=== PATIENT | female | born 1955 | race Caucasian/White ===

== ENCOUNTER 2018-06-02 11:03 | Inpatient (IN) | payer OTHER ==
[~2018-06-02] VITALS: Ht 167.6 cm; Wt 66.7 kg
[2018-06-02] MEDS ORDERED: MAG HYDROX/AL HYDROX/SIMETH 30 ML UDC PO PRN (12:30)
[2018-06-02] MEDS ORDERED: MAGNESIUM HYDROXIDE 30 ML UDC PO PRN (12:30)
[2018-06-02] MEDS: QUETIAPINE FUMARATE 100 MG TABLET PO SCH ×2 (13:30→17:00)
[2018-06-02] MEDS ORDERED: QUET300T2 PO (14:10)
[2018-06-02] MEDS ORDERED: CEPH-570 PO (14:10)
[2018-06-02] MEDS ORDERED: ASPI-1152 PO (14:10)
[2018-06-02] MEDS ORDERED: CARV25TA2 PO (14:10)
[2018-06-02] MEDS ORDERED: HYDR-4384 PO (14:10)
[2018-06-02] MEDS ORDERED: INSU100V7 SQ (14:10)
[2018-06-02] MEDS ORDERED: DIVA500T4 PO (14:10)
[2018-06-02] MEDS ORDERED: QUET300T5 PO (14:10)
[2018-06-02] MEDS ORDERED: ATOR80TA PO (14:10)
[2018-06-02 14:45] VITALS: BP 117/59
[2018-06-02 16:00] VITALS: BP 140/60
[2018-06-02] MEDS ORDERED: DEXTROSE 50%-WATER 50 ML DISP.SYRIN IV PRN (16:30)
[2018-06-02] MEDS: DIVALPROEX SODIUM 125 MG CAP.SPRINK PO SCH (17:00)
[2018-06-02] MEDS: BLOOD SUGAR DIAGNOSTIC 1 EACH STRIP IN SCH ×2 (17:07→21:23)
[2018-06-02] MEDS: INSULIN REGULAR, HUMAN 100 UNIT/ML 3 ML VIAL SQ PRN ×2 (17:08→21:35)
[2018-06-02] MEDS ORDERED: hydrALAZINE HCL 10 MG TABLET PO ONE (17:30)
[2018-06-02] MEDS: CEPHALEXIN MONOHYDRATE 500 MG CAPSULE PO SCH (17:58)
[2018-06-02] MEDS ORDERED: HYDROCODONE/APAP 5/325MG 1 EACH TABLET PO PRN (18:00)
[2018-06-02 21:00] VITALS: BP 133/65
[2018-06-02] MEDS: CARVEDILOL 12.5 MG TABLET PO SCH (21:25)
[2018-06-02] MEDS: ATORVASTATIN 40 MG TABLET PO SCH (21:26)
[2018-06-02] MEDS: INSULIN GLARGINE, 100 UNIT/ML CARTRIDGE SQ SCH (21:34)
[2018-06-03] MEDS: CEPHALEXIN MONOHYDRATE 500 MG CAPSULE PO SCH ×4 (00:51→17:05)
[2018-06-03 07:24] LABS: ALBUMIN 3.3 g/dL (3.4-5.0); BILIRUBIN,TOTAL 0.4 mg/dL (0.2-1.0); CALCIUM, SERUM 9.5 mg/dL (8.5-10.1); CREATININE 0.8 mg/dL (0.6-1.3); POTASSIUM 4.4 mmol/L (3.5-5.1); TOTAL PROTEIN, SERUM 7.2 g/dL (6.4-8.2)
[2018-06-03] MEDS: BLOOD SUGAR DIAGNOSTIC 1 EACH STRIP IN SCH ×4 (07:47→21:24)
[2018-06-03] MEDS: INSULIN REGULAR, HUMAN 100 UNIT/ML 3 ML VIAL SQ PRN ×4 (07:50→21:31)
[2018-06-03 08:00] VITALS: BP 169/80
[2018-06-03] MEDS: CARVEDILOL 12.5 MG TABLET PO SCH ×2 (08:35→20:14)
[2018-06-03] MEDS: ASPIRIN EC 81 MG TABLET.DR PO SCH (08:37)
[2018-06-03] MEDS: QUETIAPINE FUMARATE 100 MG TABLET PO SCH ×3 (08:39→17:00)
[2018-06-03] MEDS: DIVALPROEX SODIUM 125 MG CAP.SPRINK PO SCH ×3 (08:39→17:00)
[2018-06-03 10:15] VITALS: BP 154/73
[2018-06-03 16:00] VITALS: BP 156/90
[2018-06-03 20:37] VITALS: BP 168/78
[2018-06-03 20:50] VITALS: BP 138/67
[2018-06-03] MEDS: ATORVASTATIN 40 MG TABLET PO SCH (21:16)
[2018-06-03] MEDS: TEMAZEPAM 7.5 MG CAPSULE PO PRN (21:24)
[2018-06-03] MEDS: INSULIN GLARGINE, 100 UNIT/ML CARTRIDGE SQ SCH (21:28)
[2018-06-03] MEDS: ACETAMINOPHEN 325 MG TABLET PO PRN (21:55)
[2018-06-04] MEDS: CEPHALEXIN MONOHYDRATE 500 MG CAPSULE PO SCH ×5 (00:33→23:36)
[2018-06-04] MEDS: hydrALAZINE HCL 10 MG TABLET PO PRN ×3 (07:30→23:40)
[2018-06-04 08:00] VITALS: BP 193/94
[2018-06-04] MEDS: BLOOD SUGAR DIAGNOSTIC 1 EACH STRIP IN SCH ×4 (08:25→21:27)
[2018-06-04] MEDS: ASPIRIN EC 81 MG TABLET.DR PO SCH (08:26)
[2018-06-04] MEDS: CARVEDILOL 12.5 MG TABLET PO SCH ×2 (08:27→20:25)
[2018-06-04] MEDS: INSULIN REGULAR, HUMAN 100 UNIT/ML 3 ML VIAL SQ PRN ×4 (08:30→22:19)
[2018-06-04] MEDS: DIVALPROEX SODIUM 125 MG CAP.SPRINK PO SCH ×3 (08:34→17:00)
[2018-06-04] MEDS: QUETIAPINE FUMARATE 100 MG TABLET PO SCH ×3 (08:34→17:00)
[2018-06-04 16:00] VITALS: BP 170/73
[2018-06-04 18:21] VITALS: BP 160/79
[2018-06-04] MEDS: ACETAMINOPHEN 325 MG TABLET PO PRN (18:24)
[2018-06-04] MEDS: LORAZEPAM 0.5 MG TABLET PO PRN (19:45)
[2018-06-04 20:00] VITALS: BP 161/78
[2018-06-04] MEDS: ATORVASTATIN 40 MG TABLET PO SCH (21:27)
[2018-06-04] MEDS: INSULIN GLARGINE, 100 UNIT/ML CARTRIDGE SQ SCH (22:16)
[2018-06-04] MEDS: TEMAZEPAM 7.5 MG CAPSULE PO PRN (22:20)
[2018-06-05] MEDS: CEPHALEXIN MONOHYDRATE 500 MG CAPSULE PO SCH ×4 (06:18→23:01)
[2018-06-05 08:00] VITALS: BP 172/82
[2018-06-05] MEDS: BLOOD SUGAR DIAGNOSTIC 1 EACH STRIP IN SCH ×4 (08:34→21:19)
[2018-06-05] MEDS: INSULIN REGULAR, HUMAN 100 UNIT/ML 3 ML VIAL SQ PRN ×4 (08:34→21:27)
[2018-06-05] MEDS: ASPIRIN EC 81 MG TABLET.DR PO SCH (08:58)
[2018-06-05] MEDS: CARVEDILOL 12.5 MG TABLET PO SCH ×2 (08:59→21:21)
[2018-06-05] MEDS: hydrALAZINE HCL 10 MG TABLET PO PRN ×3 (08:59→22:44)
[2018-06-05] MEDS: DIVALPROEX SODIUM 125 MG CAP.SPRINK PO SCH ×3 (09:00→17:00)
[2018-06-05] MEDS: QUETIAPINE FUMARATE 100 MG TABLET PO SCH ×3 (09:00→17:00)
[2018-06-05 16:00] VITALS: BP 181/74
[2018-06-05] MEDS: INSULIN ASPART/LISPRO 100 UNIT/ML CARTRIDGE SQ SCH (17:34)
[2018-06-05 20:00] VITALS: BP 168/91
[2018-06-05] MEDS: ATORVASTATIN 40 MG TABLET PO SCH (21:20)
[2018-06-05] MEDS: INSULIN GLARGINE, 100 UNIT/ML CARTRIDGE SQ SCH (21:31)
[2018-06-05] MEDS: ACETAMINOPHEN 325 MG TABLET PO PRN (22:54)
[2018-06-06] MEDS: LORAZEPAM 0.5 MG TABLET PO PRN ×2 (02:48→09:07)
[2018-06-06 02:50] VITALS: BP 156/76
[2018-06-06] MEDS: CEPHALEXIN MONOHYDRATE 500 MG CAPSULE PO SCH ×4 (06:16→23:01)
[2018-06-06 08:00] VITALS: BP 120/67
[2018-06-06] MEDS: CARVEDILOL 12.5 MG TABLET PO SCH ×2 (08:44→19:36)
[2018-06-06] MEDS: QUETIAPINE FUMARATE 100 MG TABLET PO SCH ×3 (08:44→17:00)
[2018-06-06] MEDS: BLOOD SUGAR DIAGNOSTIC 1 EACH STRIP IN SCH ×4 (08:44→20:02)
[2018-06-06] MEDS: DIVALPROEX SODIUM 125 MG CAP.SPRINK PO SCH ×3 (08:44→17:00)
[2018-06-06] MEDS: ASPIRIN EC 81 MG TABLET.DR PO SCH (08:44)
[2018-06-06] MEDS: INSULIN ASPART/LISPRO 100 UNIT/ML CARTRIDGE SQ SCH ×2 (08:47→17:53)
[2018-06-06] MEDS: INSULIN REGULAR, HUMAN 100 UNIT/ML 3 ML VIAL SQ PRN ×4 (08:48→20:10)
[2018-06-06 16:00] VITALS: BP 147/63
[2018-06-06] MEDS: ACETAMINOPHEN 325 MG TABLET PO PRN (19:35)
[2018-06-06 20:00] VITALS: BP 145/67
[2018-06-06 20:32] VITALS: BP 176/70
[2018-06-06] MEDS: ATORVASTATIN 40 MG TABLET PO SCH (21:02)
[2018-06-06] MEDS: INSULIN GLARGINE, 100 UNIT/ML CARTRIDGE SQ SCH (21:03)
[2018-06-07] MEDS: CEPHALEXIN MONOHYDRATE 500 MG CAPSULE PO SCH ×4 (05:01→23:39)
[2018-06-07] MEDS: hydrALAZINE HCL 10 MG TABLET PO PRN (05:01)
[2018-06-07 08:00] VITALS: BP 189/95
[2018-06-07] MEDS: QUETIAPINE FUMARATE 100 MG TABLET PO SCH ×3 (09:00→17:00)
[2018-06-07] MEDS: DIVALPROEX SODIUM 125 MG CAP.SPRINK PO SCH ×3 (09:00→17:00)
[2018-06-07] MEDS: BLOOD SUGAR DIAGNOSTIC 1 EACH STRIP IN SCH ×4 (09:08→22:11)
[2018-06-07] MEDS: LORAZEPAM 0.5 MG TABLET PO PRN (09:09)
[2018-06-07] MEDS: CARVEDILOL 12.5 MG TABLET PO SCH ×2 (09:10→20:13)
[2018-06-07] MEDS: ASPIRIN EC 81 MG TABLET.DR PO SCH (09:11)
[2018-06-07] MEDS: INSULIN ASPART/LISPRO 100 UNIT/ML CARTRIDGE SQ SCH ×2 (09:13→18:15)
[2018-06-07] MEDS: INSULIN REGULAR, HUMAN 100 UNIT/ML 3 ML VIAL SQ PRN ×4 (09:14→22:15)
[2018-06-07 10:00] VITALS: BP 148/70
[2018-06-07 16:00] VITALS: BP 144/90
[2018-06-07 20:00] VITALS: BP 182/92
[2018-06-07 20:03] VITALS: BP 182/92
[2018-06-07] MEDS: ACETAMINOPHEN 325 MG TABLET PO PRN (20:12)
[2018-06-07] MEDS: INSULIN GLARGINE, 100 UNIT/ML CARTRIDGE SQ SCH (22:14)
[2018-06-07] MEDS: ATORVASTATIN 40 MG TABLET PO SCH (22:14)
[2018-06-07 22:30] VITALS: BP 148/81
[2018-06-07] MEDS: TEMAZEPAM 7.5 MG CAPSULE PO PRN (22:38)
[2018-06-08] MEDS: CEPHALEXIN MONOHYDRATE 500 MG CAPSULE PO SCH ×3 (06:00→18:14)
[2018-06-08] MEDS: BLOOD SUGAR DIAGNOSTIC 1 EACH STRIP IN SCH ×4 (07:30→22:00)
[2018-06-08 08:00] VITALS: BP 180/97
[2018-06-08] MEDS: ASPIRIN EC 81 MG TABLET.DR PO SCH (08:52)
[2018-06-08] MEDS: QUETIAPINE FUMARATE 100 MG TABLET PO SCH ×3 (08:53→18:14)
[2018-06-08] MEDS: CARVEDILOL 12.5 MG TABLET PO SCH ×2 (08:53→21:00)
[2018-06-08] MEDS: DIVALPROEX SODIUM 125 MG CAP.SPRINK PO SCH ×3 (08:53→17:00)
[2018-06-08] MEDS: INSULIN REGULAR, HUMAN 100 UNIT/ML 3 ML VIAL SQ PRN ×4 (08:57→17:53)
[2018-06-08] MEDS: INSULIN ASPART/LISPRO 100 UNIT/ML CARTRIDGE SQ SCH ×2 (09:03→17:52)
[2018-06-08] MEDS: AMLODIPINE BESYLATE 5 MG TABLET PO SCH (11:37)
[2018-06-08] MEDS ORDERED: HALOPERIDOL LACTATE INJ 5 MG/ML VIAL IM PRN (15:00)
[2018-06-08 16:00] VITALS: BP 106/69
[2018-06-08] MEDS ORDERED: HALOPERIDOL 5 MG TABLET PO SCH (17:00)
[2018-06-08] MEDS: risperiDONE 1 MG TABLET PO SCH (17:00)
[2018-06-08 20:09] VITALS: BP 147/77
[2018-06-08 20:21] VITALS: BP 147/77
[2018-06-08] MEDS: INSULIN GLARGINE, 100 UNIT/ML CARTRIDGE SQ SCH (22:00)
[2018-06-08] MEDS ORDERED: QUETIAPINE FUMARATE 100 MG TABLET PO SCH (22:00)
[2018-06-08] MEDS: ATORVASTATIN 40 MG TABLET PO SCH (22:00)
[2018-06-09] MEDS: CEPHALEXIN MONOHYDRATE 500 MG CAPSULE PO SCH ×3 (06:36→11:37)
[2018-06-09] MEDS: BLOOD SUGAR DIAGNOSTIC 1 EACH STRIP IN SCH ×4 (07:28→21:17)
[2018-06-09] MEDS: INSULIN REGULAR, HUMAN 100 UNIT/ML 3 ML VIAL SQ PRN ×4 (07:30→21:26)
[2018-06-09 08:00] VITALS: BP 141/83
[2018-06-09] MEDS: AMLODIPINE BESYLATE 5 MG TABLET PO SCH (08:29)
[2018-06-09] MEDS: ASPIRIN EC 81 MG TABLET.DR PO SCH (08:30)
[2018-06-09] MEDS: CARVEDILOL 12.5 MG TABLET PO SCH ×2 (08:30→21:17)
[2018-06-09] MEDS: risperiDONE 1 MG TABLET PO SCH ×2 (08:30→16:55)
[2018-06-09] MEDS: QUETIAPINE FUMARATE 100 MG TABLET PO SCH (08:33)
[2018-06-09] MEDS: DIVALPROEX SODIUM 125 MG CAP.SPRINK PO SCH (08:33)
[2018-06-09] MEDS: INSULIN ASPART/LISPRO 100 UNIT/ML CARTRIDGE SQ SCH ×2 (09:25→18:19)
[2018-06-09] MEDS ORDERED: HALOPERIDOL LACTATE INJ 5 MG/ML VIAL IM PRN (12:00)
[2018-06-09 16:00] VITALS: BP 146/87
[2018-06-09 20:03] VITALS: BP 144/77
[2018-06-09 20:12] VITALS: BP 131/68
[2018-06-09] MEDS: ATORVASTATIN 40 MG TABLET PO SCH (21:16)
[2018-06-09] MEDS: INSULIN GLARGINE, 100 UNIT/ML CARTRIDGE SQ SCH (21:25)
[2018-06-09] MEDS: ACETAMINOPHEN 325 MG TABLET PO PRN (21:30)
[2018-06-10 08:00] VITALS: BP 160/71
[2018-06-10] MEDS: BLOOD SUGAR DIAGNOSTIC 1 EACH STRIP IN SCH ×4 (08:01→21:22)
[2018-06-10] MEDS: INSULIN REGULAR, HUMAN 100 UNIT/ML 3 ML VIAL SQ PRN ×4 (08:56→21:30)
[2018-06-10] MEDS: ASPIRIN EC 81 MG TABLET.DR PO SCH (08:58)
[2018-06-10] MEDS: INSULIN ASPART/LISPRO 100 UNIT/ML CARTRIDGE SQ SCH ×2 (08:58→17:43)
[2018-06-10] MEDS: risperiDONE 1 MG TABLET PO SCH ×2 (08:58→16:47)
[2018-06-10] MEDS: CARVEDILOL 12.5 MG TABLET PO SCH ×2 (09:10→21:23)
[2018-06-10] MEDS: AMLODIPINE BESYLATE 5 MG TABLET PO SCH (09:10)
[2018-06-10 16:00] VITALS: BP 108/75
[2018-06-10 19:46] VITALS: BP 125/59
[2018-06-10] MEDS: ATORVASTATIN 40 MG TABLET PO SCH (21:22)
[2018-06-10] MEDS: ACETAMINOPHEN 325 MG TABLET PO PRN (21:23)
[2018-06-10] MEDS: INSULIN GLARGINE, 100 UNIT/ML CARTRIDGE SQ SCH (21:28)
[2018-06-11 08:00] VITALS: BP 150/86
[2018-06-11] MEDS: BLOOD SUGAR DIAGNOSTIC 1 EACH STRIP IN SCH ×4 (08:32→21:16)
[2018-06-11] MEDS: INSULIN REGULAR, HUMAN 100 UNIT/ML 3 ML VIAL SQ PRN ×4 (08:46→21:18)
[2018-06-11] MEDS: risperiDONE 1 MG TABLET PO SCH ×2 (08:55→16:50)
[2018-06-11] MEDS: ASPIRIN EC 81 MG TABLET.DR PO SCH (08:55)
[2018-06-11] MEDS: AMLODIPINE BESYLATE 5 MG TABLET PO SCH ×2 (08:55→09:07)
[2018-06-11] MEDS: CARVEDILOL 12.5 MG TABLET PO SCH ×3 (08:55→21:16)
[2018-06-11] MEDS: INSULIN ASPART/LISPRO 100 UNIT/ML CARTRIDGE SQ SCH ×2 (09:19→18:12)
[2018-06-11] MEDS: ACETAMINOPHEN 325 MG TABLET PO PRN (09:34)
[2018-06-11] MEDS ORDERED: risperiDONE 1 MG TABLET PO SCH (13:00)
[2018-06-11] MEDS ORDERED: INVEGA 156 MG IM ONE (14:00)
[2018-06-11 16:00] VITALS: BP 135/59
[2018-06-11 19:47] VITALS: BP 163/75
[2018-06-11 20:00] VITALS: BP 163/75
[2018-06-11] MEDS: ATORVASTATIN 40 MG TABLET PO SCH (21:16)
[2018-06-11] MEDS: INSULIN GLARGINE, 100 UNIT/ML CARTRIDGE SQ SCH (21:19)
[2018-06-12] MEDS: TEMAZEPAM 7.5 MG CAPSULE PO PRN ×2 (01:23→21:26)
[2018-06-12] MEDS: BLOOD SUGAR DIAGNOSTIC 1 EACH STRIP IN SCH ×4 (07:29→21:19)
[2018-06-12] MEDS: INSULIN REGULAR, HUMAN 100 UNIT/ML 3 ML VIAL SQ PRN ×4 (07:37→21:18)
[2018-06-12 08:00] VITALS: BP 159/99
[2018-06-12] MEDS: risperiDONE 1 MG TABLET PO SCH ×2 (08:14→17:03)
[2018-06-12] MEDS: CARVEDILOL 12.5 MG TABLET PO SCH ×2 (08:14→20:24)
[2018-06-12] MEDS: AMLODIPINE BESYLATE 5 MG TABLET PO SCH (08:14)
[2018-06-12] MEDS: ASPIRIN EC 81 MG TABLET.DR PO SCH (08:14)
[2018-06-12] MEDS: INSULIN ASPART/LISPRO 100 UNIT/ML CARTRIDGE SQ SCH ×2 (08:19→17:38)
[2018-06-12 16:00] VITALS: BP 124/66
[2018-06-12 20:00] VITALS: BP 141/72
[2018-06-12] MEDS: ATORVASTATIN 40 MG TABLET PO SCH (21:14)
[2018-06-12] MEDS: INSULIN GLARGINE, 100 UNIT/ML CARTRIDGE SQ SCH (21:17)
[2018-06-13] MEDS: BLOOD SUGAR DIAGNOSTIC 1 EACH STRIP IN SCH ×4 (07:55→21:25)
[2018-06-13 08:00] VITALS: BP 150/89
[2018-06-13] MEDS: INSULIN REGULAR, HUMAN 100 UNIT/ML 3 ML VIAL SQ PRN ×4 (08:20→21:26)
[2018-06-13] MEDS: INSULIN ASPART/LISPRO 100 UNIT/ML CARTRIDGE SQ SCH ×2 (08:21→17:37)
[2018-06-13] MEDS: ASPIRIN EC 81 MG TABLET.DR PO SCH (08:22)
[2018-06-13] MEDS: risperiDONE 1 MG TABLET PO SCH ×2 (08:22→16:08)
[2018-06-13] MEDS: AMLODIPINE BESYLATE 5 MG TABLET PO SCH (08:23)
[2018-06-13] MEDS: CARVEDILOL 12.5 MG TABLET PO SCH ×2 (08:23→20:59)
[2018-06-13 16:00] VITALS: BP 152/88
[2018-06-13 20:00] VITALS: BP 161/59
[2018-06-13] MEDS: ATORVASTATIN 40 MG TABLET PO SCH (21:25)
[2018-06-13] MEDS: INSULIN GLARGINE, 100 UNIT/ML CARTRIDGE SQ SCH (21:29)
[2018-06-14 08:00] VITALS: BP 157/75
[2018-06-14] MEDS: BLOOD SUGAR DIAGNOSTIC 1 EACH STRIP IN SCH ×4 (08:02→21:09)
[2018-06-14] MEDS: INSULIN REGULAR, HUMAN 100 UNIT/ML 3 ML VIAL SQ PRN ×4 (08:07→21:16)
[2018-06-14] MEDS: ASPIRIN EC 81 MG TABLET.DR PO SCH (08:08)
[2018-06-14] MEDS: CARVEDILOL 12.5 MG TABLET PO SCH ×2 (08:09→21:09)
[2018-06-14] MEDS: AMLODIPINE BESYLATE 5 MG TABLET PO SCH (08:09)
[2018-06-14] MEDS: risperiDONE 1 MG TABLET PO SCH ×2 (08:10→16:00)
[2018-06-14] MEDS: INSULIN ASPART/LISPRO 100 UNIT/ML CARTRIDGE SQ SCH ×2 (08:16→17:53)
[2018-06-14 16:00] VITALS: BP 149/68
[2018-06-14] MEDS: ACETAMINOPHEN 325 MG TABLET PO PRN (19:12)
[2018-06-14 19:26] VITALS: BP 130/64
[2018-06-14] MEDS: ATORVASTATIN 40 MG TABLET PO SCH (21:09)
[2018-06-14] MEDS: INSULIN GLARGINE, 100 UNIT/ML CARTRIDGE SQ SCH (21:15)
[2018-06-15] MEDS: BLOOD SUGAR DIAGNOSTIC 1 EACH STRIP IN SCH ×4 (07:57→21:07)
[2018-06-15 08:00] VITALS: BP 160/100
[2018-06-15] MEDS: ASPIRIN EC 81 MG TABLET.DR PO SCH (08:07)
[2018-06-15] MEDS: CARVEDILOL 12.5 MG TABLET PO SCH ×2 (08:07→21:07)
[2018-06-15] MEDS: risperiDONE 1 MG TABLET PO SCH ×2 (08:07→16:33)
[2018-06-15] MEDS: AMLODIPINE BESYLATE 5 MG TABLET PO SCH (08:07)
[2018-06-15] MEDS: INSULIN ASPART/LISPRO 100 UNIT/ML CARTRIDGE SQ SCH ×2 (08:12→17:39)
[2018-06-15] MEDS: INSULIN REGULAR, HUMAN 100 UNIT/ML 3 ML VIAL SQ PRN ×2 (12:23→21:12)
[2018-06-15 16:00] VITALS: BP 160/84
[2018-06-15 19:35] VITALS: BP 172/79
[2018-06-15] MEDS: ATORVASTATIN 40 MG TABLET PO SCH (21:08)
[2018-06-15] MEDS: INSULIN GLARGINE, 100 UNIT/ML CARTRIDGE SQ SCH (21:13)
[2018-06-15 23:58] VITALS: BP 131/67
[2018-06-16] MEDS: BLOOD SUGAR DIAGNOSTIC 1 EACH STRIP IN SCH ×4 (07:57→21:10)
[2018-06-16 08:00] VITALS: BP 159/72
[2018-06-16] MEDS: INSULIN ASPART/LISPRO 100 UNIT/ML CARTRIDGE SQ SCH ×2 (08:58→18:07)
[2018-06-16] MEDS ORDERED: INVEGA SUSTENNA 156 MG IM ONE (09:00)
[2018-06-16] MEDS: INSULIN REGULAR, HUMAN 100 UNIT/ML 3 ML VIAL SQ PRN ×4 (09:03→21:15)
[2018-06-16] MEDS: CARVEDILOL 12.5 MG TABLET PO SCH ×2 (09:10→21:09)
[2018-06-16] MEDS: AMLODIPINE BESYLATE 5 MG TABLET PO SCH (09:10)
[2018-06-16] MEDS: ASPIRIN EC 81 MG TABLET.DR PO SCH (09:10)
[2018-06-16] MEDS: BENZTROPINE MESYLATE (1 MG) 1 MG TABLET PO SCH ×2 (15:14→17:16)
[2018-06-16 16:00] VITALS: BP 155/84
[2018-06-16 19:55] VITALS: BP 118/62
[2018-06-16] MEDS: ATORVASTATIN 40 MG TABLET PO SCH (21:09)
[2018-06-16] MEDS: INSULIN GLARGINE, 100 UNIT/ML CARTRIDGE SQ SCH (21:16)
[2018-06-17] MEDS: ACETAMINOPHEN 325 MG TABLET PO PRN (05:07)
[2018-06-17 08:00] VITALS: BP 149/81
[2018-06-17] MEDS: BLOOD SUGAR DIAGNOSTIC 1 EACH STRIP IN SCH (08:29)
[2018-06-17] MEDS: INSULIN REGULAR, HUMAN 100 UNIT/ML 3 ML VIAL SQ PRN (08:30)
[2018-06-17] MEDS: CARVEDILOL 12.5 MG TABLET PO SCH (08:40)
[2018-06-17] MEDS: BENZTROPINE MESYLATE (1 MG) 1 MG TABLET PO SCH (08:40)
[2018-06-17] MEDS: ASPIRIN EC 81 MG TABLET.DR PO SCH (08:40)
[2018-06-17 08:41] VITALS: BP 149/81
[2018-06-17] MEDS: AMLODIPINE BESYLATE 5 MG TABLET PO SCH (08:41)
[2018-06-17] MEDS: INSULIN ASPART/LISPRO 100 UNIT/ML CARTRIDGE SQ SCH (08:45)
== END 2018-06-17 11:00 | disposition home or self-care (01) | DRG 885 ==
LOC: GPS 11:15
PROVIDERS: ADMIT Psychiatry & Neurology Psychosomatic Medicine; ATTEND Psychiatry & Neurology Psychosomatic Medicine
DX: F25.0 Schizoaffective disorder, bipolar type (principal); E11.65 Type 2 diabetes mellitus with hyperglycemia; N39.0 Urinary tract infection, site not specified; G93.40 Encephalopathy, unspecified; E78.5 Hyperlipidemia, unspecified; I10 Essential (primary) hypertension; M19.90 Unspecified osteoarthritis, unspecified site; Z79.4 Long term (current) use of insulin; F29 Unspecified psychosis not due to a substance or known physiological condition; Z73.6 Limitation of activities due to disability; F03.90 Unspecified dementia, unspecified severity, without behavioral disturbance, psychotic disturbance, mood disturbance, and anxiety; B96.89 Other specified bacterial agents as the cause of diseases classified elsewhere; Z59.0 Homelessness
CPT/HCPCS: 36415; 80053-TC; 80061-TC; 82962-TC; 84484-TC; 87081-TC; J1815

== ENCOUNTER 2019-01-16 19:26 | Inpatient (IN) | payer MEDICARE, MEDICAID ==
[~2019-01-16] VITALS: Ht 167.6 cm; Wt 66.7 kg
[~2019-01-16 19:26] MED LIST: ASPI-1152 PO; ATOR80TA PO; CARV25TA2 PO; CEPH-570 PO; HYDR-4384 PO; INSU100V7 SQ
[2019-01-16 20:18] VITALS: BP 149/93
[2019-01-16] MEDS ORDERED: LORAZEPAM 0.5 MG TABLET PO PRN (20:30)
[2019-01-16] MEDS ORDERED: MAG HYDROX/AL HYDROX/SIMETH 30 ML UDC PO PRN (20:30)
[2019-01-16] MEDS ORDERED: TEMAZEPAM 7.5 MG CAPSULE PO PRN (20:30)
[2019-01-16] MEDS ORDERED: MAGNESIUM HYDROXIDE 30 ML UDC PO PRN (20:30)
[2019-01-16] MEDS: ACETAMINOPHEN 325 MG TABLET PO PRN (20:57)
[2019-01-16] MEDS ORDERED: BLOOD SUGAR DIAGNOSTIC 1 EACH STRIP IN ONE (21:00)
[2019-01-16] MEDS ORDERED: LURA80TA PO (21:08)
[2019-01-16] MEDS ORDERED: LINA5TAB PO (21:08)
[2019-01-16] MEDS ORDERED: METF-440 PO (21:08)
[2019-01-16] MEDS ORDERED: CRAN450C PO (21:08)
[2019-01-16] MEDS ORDERED: FERR325T23 PO (21:08)
[2019-01-16] MEDS ORDERED: METO25TA6 PO (21:08)
[2019-01-16] MEDS ORDERED: BUSP5TAB3 PO (21:08)
[2019-01-16] MEDS ORDERED: SERT50TA PO (21:08)
[2019-01-16] MEDS ORDERED: MULT1TAB73 PO (21:08)
[2019-01-16] MEDS ORDERED: LATA2.5D7 EACHEYE (21:08)
[2019-01-16] MEDS ORDERED: ATOR10TA PO (21:08)
[2019-01-16] MEDS ORDERED: DORZ10DR13 EACHEYE (21:08)
[2019-01-16] MEDS ORDERED: DEXTROSE 50%-WATER 50 ML DISP.SYRIN IV PRN (21:30)
[2019-01-16] MEDS: BLOOD SUGAR DIAGNOSTIC 1 EACH STRIP IN SCH (22:19)
[2019-01-16] MEDS: INSULIN REGULAR, HUMAN 100 UNIT/ML 3 ML VIAL SQ PRN (22:21)
[2019-01-17 07:12] LABS: BASOPHILS # (AUTO) 0.1 /CMM (0.0-0.2); BASOPHILS % (AUTO) 0.8 % (0.0-2.0); EOSINOPHILS % (AUTO) 2.6 % (0.0-6.0); HEMATOCRIT 37 % (33-45); HEMOGLOBIN 12.1 g/dL (11.5-14.8); LYMPHOCYTES # (AUTO) 2.2 /CMM (0.8-4.8); LYMPHOCYTES % (AUTO) 36.3 % (20.0-44.0); MEAN CORPUSCULAR HGB CONC 33 g/dl (31.0-36.0); MEAN CORPUSCULAR VOLUME 87 fL (82-100); MONOCYTES # (AUTO) 0.5 /CMM (0.1-1.30); NEUTROPHILS # (AUTO) 3.1 /CMM (1.8-8.9); NEUTROPHILS % (AUTO) 51.3 % (43.0-81.0); PLATELET COUNT (AUTO) 295 /CMM (150-450); RED BLOOD CELL COUNT(AUTO) 4.29 MIL/uL (4.0-5.2)
[2019-01-17 07:27] LABS: CALCIUM, SERUM 9.1 mg/dL (8.5-10.1); CREATININE 0.8 mg/dL (0.6-1.3); POTASSIUM 3.9 mmol/L (3.5-5.1)
[2019-01-17 07:39] LABS: CREATINE KINASE, TOTAL 1463 U/L (26-192)
[2019-01-17] MEDS: BLOOD SUGAR DIAGNOSTIC 1 EACH STRIP IN SCH ×4 (07:47→22:35)
[2019-01-17] MEDS: INSULIN REGULAR, HUMAN 100 UNIT/ML 3 ML VIAL SQ PRN ×4 (07:48→22:44)
[2019-01-17 08:00] VITALS: BP 158/95
[2019-01-17] MEDS: METFORMIN 500 MG TABLET PO SCH ×2 (08:23→17:06)
[2019-01-17] MEDS: FERROUS SULFATE (325 MG) 325 MG/TAB TABLET PO SCH (08:24)
[2019-01-17] MEDS: ASPIRIN EC 81 MG TABLET.DR PO SCH (08:24)
[2019-01-17] MEDS: MULTIVITAMINS,THERAGRAN 1 UDTAB TABLET PO SCH (08:24)
[2019-01-17] MEDS: CARVEDILOL 12.5 MG TABLET PO SCH ×2 (08:24→22:35)
[2019-01-17] MEDS: NICOTINE PATCH (21MG) 21 MG PATCH.TD24 TD SCH (08:24)
[2019-01-17] MEDS: TIMOLOL MAL/DORZOLAM HCL OPHTH 10 ML BOTTLE EACHEYE SCH (08:25)
[2019-01-17 08:42] LABS: ACETAMINOPHEN 0 ug/ml (10-30)
[2019-01-17] MEDS: LINAGLIPTIN 5 MG TABLET PO SCH (08:48)
[2019-01-17] MEDS ORDERED: CARVEDILOL 25 MG TABLET PO SCH (09:00)
[2019-01-17] MEDS ORDERED: METOPROLOL TARTRATE 25 MG TABLET PO SCH (09:00)
[2019-01-17] MEDS ORDERED: Medication Not On Formulary EA (Cranberry Fruit Concentrate (Cranberry) 450 MG) PO SCH (09:00)
[2019-01-17] MEDS ORDERED: SERTRALINE HCL 50 MG TABLET PO SCH (09:00)
[2019-01-17 15:59] VITALS: BP 103/55
[2019-01-17] MEDS: LATANOPROST EYE DROP 0.005% 2.5 ML BOTTLE EACHEYE SCH (17:52)
[2019-01-17 19:47] VITALS: BP 128/68
[2019-01-17 20:00] VITALS: BP 137/62
[2019-01-17] MEDS: risperiDONE 1 MG TABLET PO SCH (22:34)
[2019-01-17] MEDS: TRAZODONE 50 MG TABLET PO SCH (22:35)
[2019-01-17] MEDS: ATORVASTATIN 40 MG TABLET PO SCH ×2 (22:35)
[2019-01-17] MEDS: ACETAMINOPHEN 325 MG TABLET PO PRN (23:26)
[2019-01-17 23:34] VITALS: BP 128/69
[2019-01-18 05:00] VITALS: BP 137/62
[2019-01-18] MEDS: BLOOD SUGAR DIAGNOSTIC 1 EACH STRIP IN SCH ×4 (07:30→21:00)
[2019-01-18] MEDS: INSULIN REGULAR, HUMAN 100 UNIT/ML 3 ML VIAL SQ PRN ×3 (07:47→18:02)
[2019-01-18 08:00] VITALS: BP 125/67
[2019-01-18] MEDS: NICOTINE PATCH (21MG) 21 MG PATCH.TD24 TD SCH ×2 (09:00→09:17)
[2019-01-18] MEDS: ASPIRIN EC 81 MG TABLET.DR PO SCH (09:17)
[2019-01-18] MEDS: risperiDONE 1 MG TABLET PO SCH ×2 (09:18→20:53)
[2019-01-18] MEDS: MULTIVITAMINS,THERAGRAN 1 UDTAB TABLET PO SCH (09:18)
[2019-01-18] MEDS: LINAGLIPTIN 5 MG TABLET PO SCH (09:18)
[2019-01-18] MEDS: CARVEDILOL 12.5 MG TABLET PO SCH ×2 (09:18→20:59)
[2019-01-18] MEDS: METFORMIN 500 MG TABLET PO SCH ×2 (09:18→16:43)
[2019-01-18] MEDS: FERROUS SULFATE (325 MG) 325 MG/TAB TABLET PO SCH (09:18)
[2019-01-18] MEDS: TIMOLOL MAL/DORZOLAM HCL OPHTH 10 ML BOTTLE EACHEYE SCH (09:19)
[2019-01-18] MEDS: CARBAMAZEPINE 200 MG TABLET PO SCH ×3 (09:25→16:43)
[2019-01-18] MEDS: ACETAMINOPHEN 325 MG TABLET PO PRN ×2 (12:58→23:58)
[2019-01-18 16:00] VITALS: BP 138/75
[2019-01-18] MEDS: LORAZEPAM 1 MG TABLET PO PRN (16:49)
[2019-01-18] MEDS: LATANOPROST EYE DROP 0.005% 2.5 ML BOTTLE EACHEYE SCH (17:58)
[2019-01-18] MEDS: ATORVASTATIN 40 MG TABLET PO SCH (20:53)
[2019-01-18] MEDS: TRAZODONE 50 MG TABLET PO SCH (20:53)
[2019-01-19] VITALS: BP 143/56
[2019-01-19] MEDS: BLOOD SUGAR DIAGNOSTIC 1 EACH STRIP IN SCH ×4 (07:30→22:17)
[2019-01-19 08:00] VITALS: BP_SYST 160; BP_SYST 163; BP_DIAS 73
[2019-01-19] MEDS: TIMOLOL MAL/DORZOLAM HCL OPHTH 10 ML BOTTLE EACHEYE SCH (09:00)
[2019-01-19] MEDS: CARBAMAZEPINE 200 MG TABLET PO SCH ×3 (10:06→17:50)
[2019-01-19] MEDS: ASPIRIN EC 81 MG TABLET.DR PO SCH (10:06)
[2019-01-19] MEDS: FERROUS SULFATE (325 MG) 325 MG/TAB TABLET PO SCH (10:07)
[2019-01-19] MEDS: MULTIVITAMINS,THERAGRAN 1 UDTAB TABLET PO SCH (10:07)
[2019-01-19] MEDS: LINAGLIPTIN 5 MG TABLET PO SCH (10:07)
[2019-01-19] MEDS: METFORMIN 500 MG TABLET PO SCH ×2 (10:07→17:49)
[2019-01-19] MEDS: risperiDONE 1 MG TABLET PO SCH ×2 (10:07→21:06)
[2019-01-19] MEDS: NICOTINE PATCH (21MG) 21 MG PATCH.TD24 TD SCH (10:08)
[2019-01-19] MEDS: CARVEDILOL 12.5 MG TABLET PO SCH ×2 (10:08→21:08)
[2019-01-19] MEDS: INSULIN REGULAR, HUMAN 100 UNIT/ML 3 ML VIAL SQ PRN ×3 (12:19→22:19)
[2019-01-19 16:00] VITALS: BP 142/64
[2019-01-19] MEDS: LATANOPROST EYE DROP 0.005% 2.5 ML BOTTLE EACHEYE SCH (17:49)
[2019-01-19 17:52] VITALS: BP 150/73
[2019-01-19 20:23] VITALS: BP 149/77
[2019-01-19] MEDS: ATORVASTATIN 40 MG TABLET PO SCH (21:07)
[2019-01-19] MEDS: TRAZODONE 50 MG TABLET PO SCH (21:07)
[2019-01-20 01:20] VITALS: BP 136/66
[2019-01-20] MEDS: BLOOD SUGAR DIAGNOSTIC 1 EACH STRIP IN SCH ×4 (07:57→21:06)
[2019-01-20 08:00] VITALS: BP 158/91
[2019-01-20] MEDS: INSULIN REGULAR, HUMAN 100 UNIT/ML 3 ML VIAL SQ PRN ×4 (08:20→21:09)
[2019-01-20] MEDS: NICOTINE PATCH (21MG) 21 MG PATCH.TD24 TD SCH (09:00)
[2019-01-20] MEDS: METFORMIN 500 MG TABLET PO SCH ×2 (09:04→16:37)
[2019-01-20] MEDS: risperiDONE 1 MG TABLET PO SCH ×2 (09:04→20:58)
[2019-01-20] MEDS: CARVEDILOL 12.5 MG TABLET PO SCH ×2 (09:04→20:57)
[2019-01-20] MEDS: FERROUS SULFATE (325 MG) 325 MG/TAB TABLET PO SCH (09:04)
[2019-01-20] MEDS: LINAGLIPTIN 5 MG TABLET PO SCH (09:05)
[2019-01-20] MEDS: MULTIVITAMINS,THERAGRAN 1 UDTAB TABLET PO SCH (09:05)
[2019-01-20] MEDS: ASPIRIN EC 81 MG TABLET.DR PO SCH (09:05)
[2019-01-20] MEDS: CARBAMAZEPINE 200 MG TABLET PO SCH ×3 (09:05→16:46)
[2019-01-20] MEDS: TIMOLOL MAL/DORZOLAM HCL OPHTH 10 ML BOTTLE EACHEYE SCH (09:06)
[2019-01-20] MEDS: ONDANSETRON HCL 4 MG/5 ML SOLUTION PO PRN (14:52)
[2019-01-20] MEDS: ACETAMINOPHEN 325 MG TABLET PO PRN (14:54)
[2019-01-20 16:00] VITALS: BP 163/74
[2019-01-20] MEDS: LATANOPROST EYE DROP 0.005% 2.5 ML BOTTLE EACHEYE SCH (17:05)
[2019-01-20 20:14] VITALS: BP 164/88
[2019-01-20] MEDS: ATORVASTATIN 40 MG TABLET PO SCH (20:59)
[2019-01-20] MEDS: TRAZODONE 50 MG TABLET PO SCH (21:00)
[2019-01-21] MEDS: ACETAMINOPHEN 325 MG TABLET PO PRN ×2 (03:13→21:50)
[2019-01-21] MEDS ORDERED: MENTHOL/CETYLPYRD (CEPACOL) 1 LOZ LOZENGE PO PRN (04:00)
[2019-01-21 06:37] LABS: BASOPHILS % (AUTO) 0.3 % (0.0-2.0); EOSINOPHILS % (AUTO) 2.3 % (0.0-6.0); HEMATOCRIT 34 % (33-45); HEMOGLOBIN 11.4 g/dL (11.5-14.8); LYMPHOCYTES # (AUTO) 1.8 /CMM (0.8-4.8); LYMPHOCYTES % (AUTO) 29.4 % (20.0-44.0); MEAN CORPUSCULAR HGB CONC 33 g/dl (31.0-36.0); MEAN CORPUSCULAR VOLUME 85 fL (82-100); MONOCYTES # (AUTO) 0.6 /CMM (0.1-1.30); MONOCYTES % (AUTO) 9.6 % (2.0-12.0); NEUTROPHILS # (AUTO) 3.5 /CMM (1.8-8.9); NEUTROPHILS % (AUTO) 58.4 % (43.0-81.0); PLATELET COUNT (AUTO) 275 /CMM (150-450); RED BLOOD CELL COUNT(AUTO) 4.03 MIL/uL (4.0-5.2); WHITE BLOOD COUNT (AUTO) 6.1 K/uL (4.3-11.0)
[2019-01-21 06:39] LABS: CALCIUM, SERUM 9.1 mg/dL (8.5-10.1); CREATININE 0.7 mg/dL (0.6-1.3); MAGNESIUM 1.6 mg/dL (1.8-2.4); PHOSPHORUS 3.9 mg/dL (2.5-4.9); POTASSIUM 4.1 mmol/L (3.5-5.1)
[2019-01-21] MEDS: BLOOD SUGAR DIAGNOSTIC 1 EACH STRIP IN SCH ×4 (07:57→21:33)
[2019-01-21 08:00] VITALS: BP 136/66
[2019-01-21] MEDS: CARBAMAZEPINE 200 MG TABLET PO SCH ×3 (08:18→16:57)
[2019-01-21] MEDS: METFORMIN 500 MG TABLET PO SCH ×2 (08:18→16:57)
[2019-01-21] MEDS: ASPIRIN EC 81 MG TABLET.DR PO SCH (08:18)
[2019-01-21] MEDS: FERROUS SULFATE (325 MG) 325 MG/TAB TABLET PO SCH (08:18)
[2019-01-21] MEDS: MULTIVITAMINS,THERAGRAN 1 UDTAB TABLET PO SCH (08:18)
[2019-01-21] MEDS: risperiDONE 1 MG TABLET PO SCH ×2 (08:19→21:32)
[2019-01-21] MEDS: CARVEDILOL 12.5 MG TABLET PO SCH ×2 (08:19→21:33)
[2019-01-21] MEDS: LINAGLIPTIN 5 MG TABLET PO SCH (08:19)
[2019-01-21] MEDS: INSULIN REGULAR, HUMAN 100 UNIT/ML 3 ML VIAL SQ PRN ×4 (08:22→21:35)
[2019-01-21] MEDS: TIMOLOL MAL/DORZOLAM HCL OPHTH 10 ML BOTTLE EACHEYE SCH (08:24)
[2019-01-21] MEDS: NICOTINE PATCH (21MG) 21 MG PATCH.TD24 TD SCH (08:26)
[2019-01-21] MEDS ORDERED: MAGNESIUM OXIDE 400 MG TABLET PO ONE (10:30)
[2019-01-21] MEDS: ONDANSETRON HCL 4 MG/5 ML SOLUTION PO PRN (11:43)
[2019-01-21 16:00] VITALS: BP 159/86
[2019-01-21] MEDS: LATANOPROST EYE DROP 0.005% 2.5 ML BOTTLE EACHEYE SCH (17:41)
[2019-01-21 20:07] VITALS: BP 158/84
[2019-01-21] MEDS: TRAZODONE 50 MG TABLET PO SCH (21:32)
[2019-01-21] MEDS: ATORVASTATIN 40 MG TABLET PO SCH (22:27)
[2019-01-22 07:18] LABS: CREATININE 0.8 mg/dL (0.6-1.3); MAGNESIUM 1.7 mg/dL (1.8-2.4); PHOSPHORUS 3.2 mg/dL (2.5-4.9)
[2019-01-22 07:20] LABS: BASOPHILS % (AUTO) 0.4 % (0.0-2.0); HEMATOCRIT 34 % (33-45); HEMOGLOBIN 11.4 g/dL (11.5-14.8); LYMPHOCYTES % (AUTO) 38.9 % (20.0-44.0); MEAN CORPUSCULAR HGB CONC 33 g/dl (31.0-36.0); MEAN CORPUSCULAR VOLUME 85 fL (82-100); MONOCYTES # (AUTO) 0.5 /CMM (0.1-1.30); MONOCYTES % (AUTO) 9.6 % (2.0-12.0); NEUTROPHILS # (AUTO) 2.5 /CMM (1.8-8.9); NEUTROPHILS % (AUTO) 49.1 % (43.0-81.0); PLATELET COUNT (AUTO) 317 /CMM (150-450); RED BLOOD CELL COUNT(AUTO) 4.02 MIL/uL (4.0-5.2); WHITE BLOOD COUNT (AUTO) 5.1 K/uL (4.3-11.0)
[2019-01-22] MEDS: BLOOD SUGAR DIAGNOSTIC 1 EACH STRIP IN SCH ×4 (07:25→22:02)
[2019-01-22 08:00] VITALS: BP 150/67
[2019-01-22] MEDS: ONDANSETRON HCL 4 MG/5 ML SOLUTION PO PRN ×4 (08:02→21:40)
[2019-01-22] MEDS: INSULIN REGULAR, HUMAN 100 UNIT/ML 3 ML VIAL SQ PRN ×4 (08:06→22:01)
[2019-01-22] MEDS: METFORMIN 500 MG TABLET PO SCH ×2 (08:53→17:07)
[2019-01-22] MEDS: ASPIRIN EC 81 MG TABLET.DR PO SCH (08:53)
[2019-01-22] MEDS: MULTIVITAMINS,THERAGRAN 1 UDTAB TABLET PO SCH (08:53)
[2019-01-22] MEDS: risperiDONE 1 MG TABLET PO SCH ×2 (08:53→20:40)
[2019-01-22] MEDS: FERROUS SULFATE (325 MG) 325 MG/TAB TABLET PO SCH (08:53)
[2019-01-22] MEDS: CARVEDILOL 12.5 MG TABLET PO SCH ×2 (08:54→21:15)
[2019-01-22] MEDS: NICOTINE PATCH (21MG) 21 MG PATCH.TD24 TD SCH (08:56)
[2019-01-22] MEDS: LINAGLIPTIN 5 MG TABLET PO SCH (09:05)
[2019-01-22] MEDS: TIMOLOL MAL/DORZOLAM HCL OPHTH 10 ML BOTTLE EACHEYE SCH (09:06)
[2019-01-22] MEDS ORDERED: MAGNESIUM OXIDE 400 MG TABLET PO ONE (09:30)
[2019-01-22 16:00] VITALS: BP 160/83
[2019-01-22] MEDS: LATANOPROST EYE DROP 0.005% 2.5 ML BOTTLE EACHEYE SCH (17:14)
[2019-01-22 20:21] VITALS: BP 148/70
[2019-01-22] MEDS: TRAZODONE 50 MG TABLET PO SCH (22:34)
[2019-01-22] MEDS: ATORVASTATIN 40 MG TABLET PO SCH (22:34)
[2019-01-22 23:00] VITALS: BP 137/65
[2019-01-23 06:53] LABS: BASOPHILS % (AUTO) 0.6 % (0.0-2.0); EOSINOPHILS % (AUTO) 2.6 % (0.0-6.0); HEMATOCRIT 36 % (33-45); HEMOGLOBIN 11.8 g/dL (11.5-14.8); LYMPHOCYTES # (AUTO) 2.3 /CMM (0.8-4.8); LYMPHOCYTES % (AUTO) 42.8 % (20.0-44.0); MEAN CORPUSCULAR HGB CONC 33 g/dl (31.0-36.0); MEAN CORPUSCULAR VOLUME 85 fL (82-100); MONOCYTES # (AUTO) 0.5 /CMM (0.1-1.30); MONOCYTES % (AUTO) 9.4 % (2.0-12.0); NEUTROPHILS # (AUTO) 2.4 /CMM (1.8-8.9); NEUTROPHILS % (AUTO) 44.6 % (43.0-81.0); PLATELET COUNT (AUTO) 320 /CMM (150-450); RED BLOOD CELL COUNT(AUTO) 4.24 MIL/uL (4.0-5.2); WHITE BLOOD COUNT (AUTO) 5.4 K/uL (4.3-11.0)
[2019-01-23 07:18] LABS: CALCIUM, SERUM 9.2 mg/dL (8.5-10.1); CREATININE 0.9 mg/dL (0.6-1.3); MAGNESIUM 1.8 mg/dL (1.8-2.4); PHOSPHORUS 3.4 mg/dL (2.5-4.9); POTASSIUM 4.1 mmol/L (3.5-5.1)
[2019-01-23 08:00] VITALS: BP 124/63
[2019-01-23] MEDS: BLOOD SUGAR DIAGNOSTIC 1 EACH STRIP IN SCH ×4 (08:23→21:51)
[2019-01-23] MEDS: NICOTINE PATCH (21MG) 21 MG PATCH.TD24 TD SCH ×2 (09:00→10:03)
[2019-01-23] MEDS: ONDANSETRON HCL 4 MG/5 ML SOLUTION PO PRN ×2 (09:27→17:30)
[2019-01-23] MEDS: INSULIN REGULAR, HUMAN 100 UNIT/ML 3 ML VIAL SQ PRN ×3 (09:32→21:54)
[2019-01-23] MEDS: TIMOLOL MAL/DORZOLAM HCL OPHTH 10 ML BOTTLE EACHEYE SCH (09:34)
[2019-01-23] MEDS: ASPIRIN EC 81 MG TABLET.DR PO SCH (10:03)
[2019-01-23] MEDS: METFORMIN 500 MG TABLET PO SCH ×2 (10:03→18:35)
[2019-01-23] MEDS: MULTIVITAMINS,THERAGRAN 1 UDTAB TABLET PO SCH (10:04)
[2019-01-23] MEDS: risperiDONE 1 MG TABLET PO SCH ×2 (10:04→20:01)
[2019-01-23] MEDS: CARVEDILOL 12.5 MG TABLET PO SCH ×2 (10:04→20:02)
[2019-01-23] MEDS: FERROUS SULFATE (325 MG) 325 MG/TAB TABLET PO SCH (10:04)
[2019-01-23] MEDS: LINAGLIPTIN 5 MG TABLET PO SCH (10:04)
[2019-01-23] MEDS: HYDROCODONE/APAP 5/325MG 1 EACH TABLET PO PRN (12:46)
[2019-01-23 16:00] VITALS: BP 144/71
[2019-01-23] MEDS: LATANOPROST EYE DROP 0.005% 2.5 ML BOTTLE EACHEYE SCH (17:53)
[2019-01-23] MEDS: LORAZEPAM 1 MG TABLET PO PRN (18:02)
[2019-01-23] MEDS: ACETAMINOPHEN 325 MG TABLET PO PRN (18:10)
[2019-01-23 20:07] VITALS: BP 145/60
[2019-01-23] MEDS: ATORVASTATIN 40 MG TABLET PO SCH (21:03)
[2019-01-23] MEDS: TRAZODONE 50 MG TABLET PO SCH (21:03)
[2019-01-24] MEDS: BLOOD SUGAR DIAGNOSTIC 1 EACH STRIP IN SCH ×4 (07:18→21:13)
[2019-01-24] MEDS: INSULIN REGULAR, HUMAN 100 UNIT/ML 3 ML VIAL SQ PRN ×4 (07:37→21:23)
[2019-01-24 08:19] VITALS: BP 156/96
[2019-01-24] MEDS: LINAGLIPTIN 5 MG TABLET PO SCH (08:54)
[2019-01-24] MEDS: ASPIRIN EC 81 MG TABLET.DR PO SCH (08:54)
[2019-01-24] MEDS: FERROUS SULFATE (325 MG) 325 MG/TAB TABLET PO SCH (08:54)
[2019-01-24] MEDS: MULTIVITAMINS,THERAGRAN 1 UDTAB TABLET PO SCH (08:55)
[2019-01-24] MEDS: CARVEDILOL 12.5 MG TABLET PO SCH ×2 (08:55→20:00)
[2019-01-24] MEDS: METFORMIN 500 MG TABLET PO SCH ×2 (08:55→16:24)
[2019-01-24] MEDS: NICOTINE PATCH (21MG) 21 MG PATCH.TD24 TD SCH (08:56)
[2019-01-24] MEDS: risperiDONE 1 MG TABLET PO SCH ×2 (08:56→19:58)
[2019-01-24] MEDS: TIMOLOL MAL/DORZOLAM HCL OPHTH 10 ML BOTTLE EACHEYE SCH (09:00)
[2019-01-24] MEDS: AMLODIPINE BESYLATE 5 MG TABLET PO SCH (11:04)
[2019-01-24 16:17] VITALS: BP 155/80
[2019-01-24] MEDS: LATANOPROST EYE DROP 0.005% 2.5 ML BOTTLE EACHEYE SCH (18:02)
[2019-01-24] MEDS: HYDROCODONE/APAP 5/325MG 1 EACH TABLET PO PRN (19:56)
[2019-01-24 19:58] VITALS: BP 173/85
[2019-01-24] MEDS: ATORVASTATIN 40 MG TABLET PO SCH (21:01)
[2019-01-24] MEDS: TRAZODONE 50 MG TABLET PO SCH (21:01)
[2019-01-24 22:00] VITALS: BP 138/88
[2019-01-25] MEDS: BLOOD SUGAR DIAGNOSTIC 1 EACH STRIP IN SCH ×4 (07:42→22:39)
[2019-01-25] MEDS: INSULIN REGULAR, HUMAN 100 UNIT/ML 3 ML VIAL SQ PRN ×3 (07:47→17:16)
[2019-01-25 08:00] VITALS: BP 149/79
[2019-01-25] MEDS: FERROUS SULFATE (325 MG) 325 MG/TAB TABLET PO SCH (08:27)
[2019-01-25] MEDS: ASPIRIN EC 81 MG TABLET.DR PO SCH (08:27)
[2019-01-25] MEDS: MULTIVITAMINS,THERAGRAN 1 UDTAB TABLET PO SCH (08:27)
[2019-01-25] MEDS: risperiDONE 1 MG TABLET PO SCH ×2 (08:27→20:52)
[2019-01-25] MEDS: METFORMIN 500 MG TABLET PO SCH ×2 (08:28→16:18)
[2019-01-25] MEDS: CARVEDILOL 12.5 MG TABLET PO SCH ×2 (08:28→22:35)
[2019-01-25] MEDS: AMLODIPINE BESYLATE 5 MG TABLET PO SCH (08:29)
[2019-01-25] MEDS: LINAGLIPTIN 5 MG TABLET PO SCH (08:30)
[2019-01-25] MEDS: TIMOLOL MAL/DORZOLAM HCL OPHTH 10 ML BOTTLE EACHEYE SCH (08:31)
[2019-01-25] MEDS: NICOTINE PATCH (21MG) 21 MG PATCH.TD24 TD SCH (08:31)
[2019-01-25 16:00] VITALS: BP 155/77
[2019-01-25] MEDS: LATANOPROST EYE DROP 0.005% 2.5 ML BOTTLE EACHEYE SCH (17:04)
[2019-01-25 20:15] VITALS: BP 122/64
[2019-01-25] MEDS: ATORVASTATIN 40 MG TABLET PO SCH (22:37)
[2019-01-25] MEDS: TRAZODONE 50 MG TABLET PO SCH (22:37)
[2019-01-26] MEDS: BLOOD SUGAR DIAGNOSTIC 1 EACH STRIP IN SCH ×4 (07:53→21:11)
[2019-01-26 08:00] VITALS: BP 150/99
[2019-01-26] MEDS: risperiDONE 1 MG TABLET PO SCH ×2 (08:34→21:00)
[2019-01-26] MEDS: METFORMIN 500 MG TABLET PO SCH ×2 (08:34→17:29)
[2019-01-26] MEDS: MULTIVITAMINS,THERAGRAN 1 UDTAB TABLET PO SCH (08:34)
[2019-01-26] MEDS: ASPIRIN EC 81 MG TABLET.DR PO SCH (08:34)
[2019-01-26] MEDS: LINAGLIPTIN 5 MG TABLET PO SCH (08:34)
[2019-01-26] MEDS: FERROUS SULFATE (325 MG) 325 MG/TAB TABLET PO SCH (08:34)
[2019-01-26] MEDS: CARVEDILOL 12.5 MG TABLET PO SCH ×2 (08:35→21:01)
[2019-01-26] MEDS: AMLODIPINE BESYLATE 5 MG TABLET PO SCH (08:35)
[2019-01-26] MEDS: INSULIN REGULAR, HUMAN 100 UNIT/ML 3 ML VIAL SQ PRN ×4 (08:40→21:15)
[2019-01-26] MEDS: TIMOLOL MAL/DORZOLAM HCL OPHTH 10 ML BOTTLE EACHEYE SCH (08:42)
[2019-01-26] MEDS: ONDANSETRON HCL 4 MG/5 ML SOLUTION PO PRN (08:43)
[2019-01-26] MEDS: NICOTINE PATCH (21MG) 21 MG PATCH.TD24 TD SCH (08:45)
[2019-01-26 16:00] VITALS: BP 156/58
[2019-01-26] MEDS: LATANOPROST EYE DROP 0.005% 2.5 ML BOTTLE EACHEYE SCH (17:54)
[2019-01-26] MEDS: TRAZODONE 50 MG TABLET PO SCH (21:00)
[2019-01-26] MEDS: ATORVASTATIN 40 MG TABLET PO SCH (21:01)
[2019-01-26] MEDS: HYDROCODONE/APAP 5/325MG 1 EACH TABLET PO PRN (21:48)
[2019-01-26 22:10] VITALS: BP 121/58
[2019-01-27] MEDS: BLOOD SUGAR DIAGNOSTIC 1 EACH STRIP IN SCH (07:47)
[2019-01-27] MEDS: INSULIN REGULAR, HUMAN 100 UNIT/ML 3 ML VIAL SQ PRN (07:51)
[2019-01-27 08:00] VITALS: BP 161/82
[2019-01-27] MEDS: risperiDONE 1 MG TABLET PO SCH (08:39)
[2019-01-27] MEDS: MULTIVITAMINS,THERAGRAN 1 UDTAB TABLET PO SCH (08:39)
[2019-01-27] MEDS: AMLODIPINE BESYLATE 5 MG TABLET PO SCH (08:39)
[2019-01-27] MEDS: LINAGLIPTIN 5 MG TABLET PO SCH (08:39)
[2019-01-27 08:40] VITALS: BP 161/82
[2019-01-27] MEDS: ASPIRIN EC 81 MG TABLET.DR PO SCH (08:40)
[2019-01-27] MEDS: METFORMIN 500 MG TABLET PO SCH (08:40)
[2019-01-27] MEDS: FERROUS SULFATE (325 MG) 325 MG/TAB TABLET PO SCH (08:40)
[2019-01-27] MEDS: CARVEDILOL 12.5 MG TABLET PO SCH (08:40)
[2019-01-27] MEDS: NICOTINE PATCH (21MG) 21 MG PATCH.TD24 TD SCH (08:44)
[2019-01-27] MEDS: TIMOLOL MAL/DORZOLAM HCL OPHTH 10 ML BOTTLE EACHEYE SCH (08:44)
[2019-01-27] MEDS ORDERED: *INSULIN REGULAR(HUMULIN R)HUM 100 UNIT/ML VIAL SQ PRN (09:30)
[2019-01-27] MEDS ORDERED: DEXTROSE 50%-WATER 50 ML DISP.SYRIN IV PRN (09:30)
[2019-01-27] MEDS ORDERED: INSULIN REGULAR, HUMAN 100 UNIT/ML 3 ML VIAL SQ PRN (09:30)
[2019-01-27] MEDS ORDERED: BLOOD SUGAR DIAGNOSTIC 1 EACH STRIP VI SCH (12:00)
== END 2019-01-27 15:00 | DRG 885 ==
LOC: GPS 19:26 → GPSOV1 01-17 23:07 → GPS 01-19 19:46
PROVIDERS: ADMIT Psychiatry & Neurology Psychiatry; ATTEND Nurse Practitioner Acute Care
DX: F31.5 Bipolar disorder, current episode depressed, severe, with psychotic features (principal); E11.65 Type 2 diabetes mellitus with hyperglycemia; G93.40 Encephalopathy, unspecified; N39.0 Urinary tract infection, site not specified; G40.909 Epilepsy, unspecified, not intractable, without status epilepticus; I25.10 Atherosclerotic heart disease of native coronary artery without angina pectoris; E78.5 Hyperlipidemia, unspecified; I10 Essential (primary) hypertension; Z91.19 Patient's noncompliance with other medical treatment and regimen; Z87.440 Personal history of urinary (tract) infections; Z79.899 Other long term (current) drug therapy; Z73.6 Limitation of activities due to disability; Z86.79 Personal history of other diseases of the circulatory system; M19.90 Unspecified osteoarthritis, unspecified site; H40.9 Unspecified glaucoma; Z59.0 Homelessness
CPT/HCPCS: 36415; 74018; 80048-TC; 80061-TC; 82550-TC; 82962-TC; 83735-TC; 84100-TC; 84703-TC; 85025-TC; 87081-TC; G0480; J1815; Q0162